=== PATIENT | female | born 1965 | race Caucasian/White ===

== ENCOUNTER 2018-09-02 05:05 | Day surgery (SDC) | payer BC ==
[2018-08-26 10:43] VITALS: BMI 27.2
[2018-09-02] MEDS ORDERED: PROPOFOL 20 ML ONE (10:20)
[2018-09-02] MEDS ORDERED: MIDAZOLAM HCL 2 MG/2 ML SINGLE DOSE VIAL ONE (10:20)
[2018-09-02] MEDS ORDERED: LIDOCAINE HCL/PF 2% SDV 5ML VIAL ONE (10:20)
--- NOTE | 2018-09-02 10:37 | HP ---
History & Physical Update - History History: No Change - Physical Physical: No Change - Assessment Assessment: No Change - Plan Plan: No Change Currently as noted:: Hysteroscopy, D&C
[2018-09-02] MEDS ORDERED: KETOROLAC TROMETHAMINE 30 MG/1 ML VIAL ONE (10:51)
[2018-09-02] MEDS ORDERED: DEXAMETHASONE SOD PHOSPHATE 4 MG/1 ML VIAL ONE (10:51)
--- NOTE | 2018-09-02 11:12 | OP ---
Operative Note - Note: Operative Date: 09/02/18 Pre-Operative Diagnosis: Abnormal/excessive perimenopausal bleeding Operation: Hysteroscopy, D&C Findings: Normal pelvic exam, normal uterine cavity Post-Operative Diagnosis: Same as Pre-op Surgeon: Nelson Monique Anesthesiologist/DIESEL ENGINE ENGINEER: Triston Emmanuel Anesthesia: General Specimens Removed: Endometrial curettings Estimated Blood Loss (mls): 5 Drains, Volume Out (mls): 0 Blood Volume Replaced (mls): 0 Fluid Volume Replaced (mls): 500 Operative Report Dictated: Yes
[2018-09-02] MEDS ORDERED: oxyCODONE HCL 5 MG TABLET PO PRN ×2 (11:17)
[2018-09-02] MEDS ORDERED: ONDANSETRON 4 MG/2 ML VIAL IVPUSH PRN (11:17)
[2018-09-02] MEDS ORDERED: LACTATED RINGERS SOLUTION 1,000 ML IV SCH (11:30)
[2018-09-02 13:49] VITALS: TEMP 98
[2018-09-02 19:11] VITALS: BP 119/64; PULSE 74
--- NOTE | 2018-09-03 19:13 | PATH ---
Surgical Pathology Report Patient Name: STEPHEN ASTUDILLO [facility]. Rec. #: [id number] /Age/Gender: 1965 (Age: 53) / F Account: [id number] Location: [facility] SURGICAL Taken: 09/02/2018 Received: 09/02/2018 Reported: 09/03/2018 Physicians: Nelson Monique M.D. Specimen(s) Received ENDOMETRIAL CURETTINGS Clinical History Fibroid uterus, pelvic pain Final Diagnosis ENDOMETRIAL CURETTINGS, DILATION AND CURETTAGE: FRAGMENTS OF ENDOMETRIUM WITH GLANDULAR AND STROMAL BREAKDOWN, SUPERFICIAL MYOMETRIUM, LOWER UTERINE SEGMENT, AND BENIGN CERVICAL TISSUE. Electronically Signed Rubia London M.D. Gross Description Received in formalin labeled "endometrial curettings," is a 2.0 x 2.0 x 0.3 cm aggregate of brady red soft tissue fragments. The formalin is filtered and the specimen is entirely submitted in one cassette. /09/02/2018 saudi09/02/2018
--- NOTE | 2018-09-19 10:30 | OP ---
DATE OF OPERATION: 09/02/2018 PREOPERATIVE DIAGNOSIS: Excessive perimenopausal bleeding. POSTOPERATIVE DIAGNOSIS: Excessive perimenopausal bleeding. PROCEDURE: Hysteroscopy, dilatation and curettage. SURGEON: Nelson Monique MD HEMMER CHAINSTITCH: None. ANESTHESIOLOGIST: Triston Emmanuel MD ANESTHESIA: General. COMPLICATIONS: None. ESTIMATED BLOOD LOSS: 5 mL. INTRAVENOUS FLUIDS: 500 mL. URINE OUTPUT: Not applicable. PATHOLOGY: Endometrial curettings. FINDINGS: Examination under anesthesia revealed a normal pelvic exam, normal uterus, no pelvic or adnexal masses. Hysteroscopy revealed a normal uterine cavity with a slightly atrophic endometrium. No lesions or masses were noted. PROCEDURE: The patient was met preoperatively. Risks, benefits, and alternatives of surgery were discussed in detail. All questions were answered. The patient was brought to the OR with the IV running. She was placed on the surgical table in the supine position. The general anesthesia was achieved without difficulty. The patient was then placed in a dorsal lithotomy position using adjustable Froylan stirrups. A timeout procedure was conducted as per standard protocol. The patient was then prepped and draped in the usual sterile fashion. A weighted speculum was used inside the vagina with good visualization of the cervix. The cervix was grasped with a single-toothed tenaculum, and the cervical os was dilated to accommodate size 17-Wolfe dilator. A hysteroscope was then introduced into the uterine cavity through the cervical canal. The hysteroscopy revealed a normal uterine cavity with a somewhat atrophic endometrial lining. No lesions or masses were noted. The hysteroscope was then removed. A sharp uterine curettage was performed, and the tissue was submitted to Pathology. Once this was completed, good hemostasis was confirmed. All of the instruments were removed from the patient. Sponge, lap, and instruments were correct. The patient was returned to supine position and transferred to recovery room awake and in stable condition. Marv [id number]
== END 2018-09-02 14:30 | disposition home or self-care (01) ==
LOC: JASU-SURG 05:05
PROVIDERS: ATTEND Obstetrics & Gynecology
PROC: 0UDB7ZX Extraction of Endometrium, Via Natural or Artificial Opening, Diagnostic (ICD-10-PCS; principal; 2018-09-02 10:00)
PROC: 0UJD8ZZ Inspection of Uterus and Cervix, Via Natural or Artificial Opening Endoscopic (ICD-10-PCS; 2018-09-02 10:00)
DX: N92.4 Excessive bleeding in the premenopausal period (principal)
CPT/HCPCS: 36415; 84703; 86850; 86900; 86901; 88305-TC; 94760

== ENCOUNTER 2019-02-20 21:04 | Emergency (ER) | payer BC ==
[2019-02-20 21:32] VITALS: BP 141/62; PULSE 78; TEMP 97.6; BMI 27.2
--- NOTE | 2019-02-20 21:34 | PDOC ---
Rapid Medical Evaluation Chief Complaint: Pain Time Seen by Provider: 02/20/19 21:30 Medical Evaluation: Allergies Allergy/AdvReac Type Severity Reaction Status Date / Time No Known Drug Allergies Allergy Verified 09/02/18 09:51 02/20/19 21:31 I have performed a brief in-person evaluation of this patient. The patient presents with a chief complaint of: left side flank pain which has been going on for few months now but worsening today. Patient report was seen in a clinic in [facility] 2 days ago and found to have kidney stone but does not have results with her. Denies N/V Pertinent physical exam findings: A&O in moderate distress I have ordered the following: cbc, cmp The patient will proceed to the ED for further evaluation. Discharge Disposition - Diagnosis Left flank pain - Discharge Dispostion Condition at time of disposition: Stable - Referrals - Patient Instructions - Post Discharge Activity
[2019-02-20] MEDS ORDERED: KETOROLAC TROMETHAMINE 30 MG/1 ML VIAL IVPUSH ONE (22:21)
[2019-02-20] MEDS ORDERED: SODIUM CHLORIDE 0.9% 1000 ML INFUS.BAG IV ONE (22:25)
[2019-02-20] MEDS ORDERED: KETOROLAC TROMETHAMINE 30 MG/1 ML VIAL ONE (22:49)
[2019-02-20 23:10] LABS: URINE APPEARANCE CLEAR; URINE BILIRUBIN NEGATIVE (NEGATIVE); URINE COLOR YELLOW; URINE GLUCOSE (UA) NEGATIVE (NEGATIVE); URINE KETONE NEGATIVE (NEGATIVE); URINE LEUK ESTERASE NEGATIVE (NEGATIVE); URINE NITRITE NEGATIVE (NEGATIVE); URINE PROTEIN NEGATIVE (NEGATIVE); URINE UROBILINOGEN 0.2 mg/dL (0.2-1.0)
[2019-02-20 23:12] LABS: BASO % 0.5 % (0-2.0); HEMATOCRIT 36.1 % (32.4-45.2); LYMPH % 33.2 % (8-40); MCH 30.1 pg (25.7-33.7); MCHC 33.3 g/dl (32.0-36.0); MEAN CELL VOLUME 90.4 fl (80-96); MEAN PLT VOLUME 7.1 fl (7.5-11.1); MONO % 9.8 % (3.8-10.2); NEUT % 54.5 % (42.8-82.8); PLATELET COUNT 260 K/MM3 (134-434); RBC 3.99 M/mm3 (3.60-5.2); RDW 14.1 % (11.6-15.6); WHITE BLOOD COUNT 5.8 K/mm3 (4.0-10.0)
[2019-02-20 23:39] LABS: ALBUMIN 3.9 g/dl (3.4-5.0); BILIRUBIN,TOTAL 0.4 mg/dL (0.2-1); CALCIUM 9.9 mg/dL (8.5-10.1); CREATININE 0.5 mg/dL (0.55-1.3); POTASSIUM 3.9 mmol/L (3.5-5.1); TOT PROT 7.2 g/dl (6.4-8.2)
--- NOTE | 2019-02-21 00:09 | PDOC ---
Documentation entered by Lora Denise SCRIBE, acting as scribe for Bea Farooq DO. Bea Farooq DO: This documentation has been prepared by the Howie marroquin Daisy, SCRIBE, under my direction and personally reviewed by me in its entirety. I confirm that the documentation accurately reflects all work, treatment, procedures, and medical decision making performed by me. Attending Attestation - Resident Resident Name: HernandezAndrea - ED Attending Attestation I have performed the following: I have examined & evaluated the patient, The case was reviewed & discussed with the resident, I agree w/resident's findings & plan - HPI HPI: 02/20/19 22:26 The patient is a 53 YOF with no PMH who presents to the ER for left flank pain that worsened today. Patient had imaging done at a clinic 2 days ago, told she had a kidney stone but did not bring the results with her. She also admits to having urinary frequency for the past 2 days. Denies nausea, vomiting, hematuria, dysuria. Allergies: NKDA - Physicial Exam PE: 02/21/19 00:10 ADULT PHYSICAL EXAM Constitutional: Awake, alert, oriented. No acute distress. Cardiovascular: Regular rate. Regular rhythm. S1, S2 regular. Distal pulses are 2+ and symmetric. Pulmonary/Chest: No evidence of respiratory distress. Clear to auscultation bilaterally No wheezing, rales or rhonchi. Abdominal: Soft and non-distended. There is no tenderness. No rebound, guarding or rigidity. No organomegaly. No palpable masses. Good bowel sounds. Back: (+) Left CVA tenderness. Musculoskeletal: No edema. Full range of motion in all extremities. Skin: Skin is warm and dry. Neurological: Alert and oriented to person, place, and time. Cranial nerves II- XII are grossly intact. - Medical Decision Making 02/21/19 00:02 I, Dr. Bea Farooq DO, attest that this document has been prepared under my direction and personally reviewed by me in its entirety. I further attest, that it accurately reflects all work, treatment, procedures and medical decision -making performed by me. 02/21/19 00:02 a/p: 53yo female with recently dx L kidney stone by CT at [facility] and follows with dr. Obrien -acute worsening of L flank pain tonight -assoc nausea no vomiting -no dysuria or hematuria -L cva ttp -labs and ultrasound ordered -will give toradol -will monitor and reassess 02/21/19 00:07 toradol improved pain labs reviewed cr stable no uti pending sono 02/21/19 00:13 no acute hyro small L ovarian cyst no torsion or ff suspect renal colic has appt with urology for follow up stable for dc to home
--- NOTE | 2019-02-21 00:26 | PDOC ---
History of Present Illness - General Chief Complaint: Pain Stated Complaint: ABD PAIN Time Seen by Provider: 02/20/19 21:30 Past History - Past Medical History Allergies/Adverse Reactions: Allergies Allergy/AdvReac Type Severity Reaction Status Date / Time No Known Drug Allergies Allergy Verified 09/02/18 09:51 Home Medications: Ambulatory Orders Naproxen [Naprosyn -] 500 mg PO BID PRN 7 Days #14 tablet 02/21/19 Ondansetron [Zofran -] 4 mg PO Q8H #10 tablet 02/21/19 Anemia: No Asthma: No Cancer: No Cardiac Disorders: No CVA: No COPD: No CHF: No Dementia: No Diabetes: No GI Disorders: No Disorders: No HTN: No Hypercholesterolemia: No Liver Disease: No Seizures: No Thyroid Disease: No - Surgical History Abdominal Surgery: No Appendectomy: Yes Cardiac Surgery: No Cholecystectomy: No Lung Surgery: No Neurologic Surgery: No Orthopedic Surgery: No - Immunization History Td Vaccination: Yes TDAP Vaccination: Yes Immunization Up to Date: Yes - Suicide/Smoking/Psychosocial Hx Smoking Status: No Smoking History: Unknown if ever smoked Have you smoked in the past 12 months: No Number of Cigarettes Smoked Daily: 0 'Breaking Loose' booklet given: 07/07/15 Hx Alcohol Use: No Drug/Substance Use Hx: No Substance Use Type: None Hx Substance Use Treatment: No *Physical Exam - Vital Signs Last Vital Signs Temp Pulse Resp BP Pulse Ox 97.6 F 78 20 141/62 100 02/20/19 21:30 02/20/19 21:30 02/20/19 21:30 02/20/19 21:30 02/20/19 21:30 ED Treatment Course - LABORATORY CBC & Chemistry Diagram: 02/20/19 22:46 02/20/19 22:46 - ADDITIONAL ORDERS Additional order review: Laboratory Results 02/20/19 02/20/19 22:46 22:46 Sodium 137 Potassium 3.9 Chloride 106 Carbon Dioxide 27 Anion Gap 5 L BUN 22 H Creatinine 0.5 L Est GFR (CKD-EPI)AfAm 128.97 Est GFR (CKD-EPI)NonAf 111.28 Random Glucose 84 Calcium 9.9 Total Bilirubin 0.4 AST 14 L ALT 25 Alkaline Phosphatase 54 Total Protein 7.2 Albumin 3.9 Urine Color Yellow Urine Appearance Clear Urine pH 7.0 D Ur Specific [place] 1.003 L Urine Protein Negative Urine Glucose (UA) Negative Urine Ketones Negative Urine Blood Negative Urine Nitrite Negative Urine Bilirubin Negative Urine Urobilinogen 0.2 Ur Leukocyte Esterase Negative 02/20/19 22:46 RBC 3.99 MCV 90.4 MCHC 33.3 RDW 14.1 MPV 7.1 L Neutrophils % 54.5 Lymphocytes % 33.2 Monocytes % 9.8 Eosinophils % 2.0 Basophils % 0.5 - RADIOLOGY Radiology Studies Ordered: Category Date Time Status PELVIC / BLADDER US [US] Stat Ultrasound 02/20/19 22:22 Taken - Medications Given in the ED: ED Medications Discontinued Medications Generic Name Dose Route Start Last Admin Trade Name Freq PRN Reason Stop Dose Admin Diphenhydramine HCl 12.5 mg 02/20/19 22:26 02/20/19 22:56 Benadryl Injection - IVPUSH 02/20/19 22:27 12.5 mg ONCE ONE Administration Ketorolac Tromethamine 30 mg 02/20/19 22:21 02/20/19 22:56 Toradol Injection - IVPUSH 02/20/19 22:22 30 mg ONCE ONE Administration Sodium Chloride 1,000 ml 02/20/19 22:25 02/20/19 22:56 Normal Saline - IV 02/20/19 22:26 1,000 ml ONCE ONE Administration *DC/Admit/Observation/Transfer Diagnosis at time of Disposition: Left flank pain - Discharge Dispostion Disposition: HOME Condition at time of disposition: Stable Decision to Admit order: No - Prescriptions Prescriptions: Naproxen [Naprosyn -] 500 mg PO BID PRN 7 Days #14 tablet PRN Reason: Pain Ondansetron [Zofran -] 4 mg PO Q8H #10 tablet - Referrals Referrals: Nelsno Monique MD [Primary Care Provider] - Larry Anna MD [Staff Physician] - - Patient Instructions Printed Discharge Instructions: DI for Kidney Stones Additional Instructions: You were seen today for left flank pain. This pain is likely from the kidney stones previously diagnosed by Dr. Anna. Your blood and urine tests were normal. The ultrasound showed the presence of kidney stones but no other concerning findings. I have sent a prescription for Naproxen and Zofran to your pharmacy. Take as directed on the package insert. Do not take more than the recommended dose. Call your doctor tomorrow morning to let the office know you were seen in the department tonight. Your results from the visit are attached to the packet. Take it with you to the appointment so your doctor can review it. Go to the nearest emergency department if your condition worsens or you feel like you need additional emergency evaluation. Print Language: HUNGARIAN - Post Discharge Activity Forms/Work/School Notes: Back to Work
== END 2019-02-21 00:34 | disposition home or self-care (01) ==
LOC: JER 21:04
PROC: 3E0333Z Introduction of Anti-inflammatory into Peripheral Vein, Percutaneous Approach (ICD-10-PCS; principal; 2019-02-20)
PROC: 3E033GC Introduction of Other Therapeutic Substance into Peripheral Vein, Percutaneous Approach (ICD-10-PCS; 2019-02-20)
DX: N20.0 Calculus of kidney (principal); Z87.442 Personal history of urinary calculi
CPT/HCPCS: 36415; 76775-TC; 76856-TC; 80053; 81003; 85025; 87086; 99282-25; J7030

== ENCOUNTER 2019-04-14 09:27 | Day surgery (SDC) | payer BC ==
[2019-04-10 15:01] VITALS: BMI 27.2
[2019-04-14] MEDS ORDERED: MIDAZOLAM HCL 2 MG/2 ML SINGLE DOSE VIAL ONE (10:49)
[2019-04-14] MEDS ORDERED: ONDANSETRON 4 MG/2 ML VIAL IVPUSH PRN (11:02)
[2019-04-14] MEDS ORDERED: oxyCODONE HCL 5 MG TABLET PO PRN (11:02)
--- NOTE | 2019-04-14 11:52 | OP ---
Operative Note - Note: Operative Date: 04/14/19 Operation: L renal stone Findings: 15 mm Left kidey pelvic area stone Surgeon: Richard Bergman Anesthesia: Fractional Estimated Blood Loss (mls): 0 Operative Report Dictated: Yes
[2019-04-14] MEDS ORDERED: ONDANSETRON 4 MG/2 ML VIAL ONE (12:48)
[2019-04-14 13:33] VITALS: PULSE 70
[2019-04-14 13:37] VITALS: BP 130/62; TEMP 97.8
--- NOTE | 2019-04-14 20:11 | OP ---
DATE OF OPERATION: 04/14/2019 PREOPERATIVE DIAGNOSIS: Left renal stone. POSTOPERATIVE DIAGNOSIS: Left renal stone. PROCEDURE: Left extracorporeal shock wave lithotripsy. ATTENDING: Christiana Buckley MD ANESTHESIA: Fractional. DESCRIPTION OF OPERATION: Patient was brought in the operating room and placed in a supine position on the operating room table. Ultrasonography and fluoroscopy were performed. A 15-mm left renal pelvic stone was identified. Once anesthesia had been instituted, shock wave lithotripsy was performed; 3000 impulses at 20 joules of power were administered to the stone with excellent fragmentation under real-time ultrasonography and fluoroscopy. No complications were noted. The disposition of the patient was to the recovery room. CHRISTIANA BUCKLEY M.D. [id number]
== END 2019-04-14 13:39 | disposition home or self-care (01) ==
LOC: JASU-SURG 09:27
PROVIDERS: ATTEND Urology
PROC: 0TF4XZZ Fragmentation in Left Kidney Pelvis, External Approach (ICD-10-PCS; principal; 2019-04-14 11:00)
DX: N20.0 Calculus of kidney (principal)
CPT/HCPCS: 84703

== ENCOUNTER 2020-05-16 20:55 | Emergency (ER) | payer BC ==
[2020-05-16 21:00] VITALS: BP 119/68; PULSE 96; TEMP 98.5; BMI 28.7
[2020-05-16] MEDS ORDERED: SODIUM CHLORIDE 1,000 ML IV STA (21:00)
--- NOTE | 2020-05-16 21:00 | PDOC ---
Rapid Medical Evaluation Time Seen by Provider: 05/16/20 20:57 Medical Evaluation: Allergies Allergy/AdvReac Type Severity Reaction Status Date / Time No Known Drug Allergies Allergy Verified 04/14/19 10:23 05/16/20 20:58 I have performed a brief in-person evaluation of this patient. CC: room spinning dizziness, abdominal pain after eating; Denies PMHx PE: No CVAT. Abd SNTND. Gait steady. Neuro grossly intact Orders: labs, urine, NS, EKG Patient will proceed to ED for further evaluation. 05/16/20 20:59 Discharge Disposition - Diagnosis Dizziness - Referrals - Patient Instructions - Post Discharge Activity
[2020-05-16 22:00] LABS: BASO % 0.9 % (0-2.0); EOS % 0.9 % (0-4.5); HEMATOCRIT 36.4 % (32.4-45.2); HEMOGLOBIN 12.2 GM/dL (10.7-15.3); LYMPH % 29.5 % (8-40); MCH 30.4 pg (25.7-33.7); MCHC 33.4 g/dl (32.0-36.0); MEAN CELL VOLUME 91.2 fl (80-96); MEAN PLT VOLUME 7.3 fl (7.5-11.1); NEUT % 58.7 % (42.8-82.8); PLATELET COUNT 271 K/MM3 (134-434); RDW 14.1 % (11.6-15.6); WHITE BLOOD COUNT 5.5 K/mm3 (4.0-10.0)
[2020-05-16 22:06] LABS: URINE APPEARANCE CLEAR; URINE BILIRUBIN NEGATIVE (NEGATIVE); URINE COLOR YELLOW; URINE GLUCOSE (UA) NEGATIVE (NEGATIVE); URINE KETONE NEGATIVE (NEGATIVE); URINE LEUK ESTERASE NEGATIVE (NEGATIVE); URINE NITRITE NEGATIVE (NEGATIVE); URINE PROTEIN NEGATIVE (NEGATIVE); URINE UROBILINOGEN 0.2 mg/dL (0.2-1.0)
[2020-05-16 22:21] LABS: ALK PHOS 56 U/L (45-117); ANION GAP 5 MMOL/L (8-16); BILIRUBIN,TOTAL 0.3 mg/dL (0.2-1); BLOOD UREA NITROGEN 10.8 mg/dL (7-18); CALCIUM 9.9 mg/dL (8.5-10.1); CHLORIDE 106 mmol/L (98-107); CO2 29 mmol/L (21-32); CREATININE 1.1 mg/dL (0.55-1.3); LIPASE 213 U/L (73-393); POTASSIUM 4.2 mmol/L (3.5-5.1); SGOT/AST 15 U/L (15-37); SGPT/ALT 21 U/L (13-61); SODIUM 139 mmol/L (136-145); TOT PROT 7.4 g/dl (6.4-8.2)
--- NOTE | 2020-05-16 22:21 | PDOC ---
History of Present Illness - General Chief Complaint: Pain, Acute Stated Complaint: STOMACH ACHES/ DIZZINESS Time Seen by Provider: 05/16/20 20:57 History Source: Patient Exam Limitations: No Limitations - History of Present Illness Initial Comments: 05/16/20 22:21 Ilda Agrawal is a 54 Y female with a PMH of nephrolithiasis(s/p lithotripsy 05/02), multiple ovarian cysts(s/p L. oophorectomy), s/p appendectomy, presents today with R. flank pain radiating to umbilicus. Patient states that the pain started after her dinner around 7.30 pm. Pain was episodic, tight, crampy pain, 10/10 at worse and 4/10 at rest. She reports that the pain is similar to her last stone, but much more severe this time. She denies any nausea, vomiting, fever, chills, diarrhea, constipation, chest pain or SOB. She reports that her LMP was one year ago, No post abnormal bleeding. She also reports that when she had the pain today, she went to the bathroom to relief her pain, but the pain became more severe with straining and she had to stand up. when she stood up she suddenly felt, dizzy and sweating and had to hold on to the wall for a bit. 05/16/20 22:34 Past History - Travel History Traveled outside of the country in the last 30 days: No - Medical History Allergies/Adverse Reactions: Allergies Allergy/AdvReac Type Severity Reaction Status Date / Time No Known Drug Allergies Allergy Verified 04/14/19 10:23 Home Medications: Ambulatory Orders NK [No Known Home Medication] 04/10/19 Anemia: No Asthma: No Cancer: No Cardiac Disorders: No CVA: No COPD: No CHF: No Dementia: No Diabetes: No GI Disorders: No Disorders: No HTN: No Hypercholesterolemia: No Kidney Stones: Yes Liver Disease: No Seizures: No Thyroid Disease: No - Surgical History Abdominal Surgery: No Appendectomy: Yes Cardiac Surgery: No Cholecystectomy: No Lung Surgery: No Neurologic Surgery: No Orthopedic Surgery: No - Immunization History Td Vaccination: Yes TDAP Vaccination: Yes Immunization Up to Date: Yes - Psycho-Social/Smoking History Smoking Status: No Smoking History: Never smoked Have you smoked in the past 12 months: No Number of Cigarettes Smoked Daily: 0 'Breaking Loose' booklet given: 07/07/15 - Substance Abuse Hx (Audit-C & DAST Scrn) How often the patient has a drink containing alcohol: Never Score: In Men: 4 or > Positive; In Women: 3 or > Positive: 0 Screen Result (Pos requires Nsg. Audit-10AR): Negative Review of Systems - Review of Systems Able to Perform ROS?: Yes Is the patient limited Swedish proficient: No Constitutional: No: Chills, Fever, Loss of Appetite HEENTM: No: Blurred Vision, Throat Pain, Throat Swelling Respiratory: No: Cough, Shortness of Breath, Productive cough Cardiac (ROS): Yes: Lightheadedness. No: Chest Pain, Edema, Irregular Heart Rate, Palpitations, Chest Tightness ABD/GI: Yes: Abdominal cramping (R.flank pain). No: Constipated, Diarrhea, Nausea, Vomiting : No: Burning, Dysuria, Urgency Musculoskeletal: No: Back Pain Neurological: No: Headache *Physical Exam - Vital Signs Last Vital Signs Temp Pulse Resp BP Pulse Ox 98.5 F 96 H 19 119/68 99 05/16/20 20:57 05/16/20 20:57 05/16/20 20:57 05/16/20 20:57 05/16/20 20:57 - Physical Exam General Appearance: Yes: Appropriately Dressed. No: Apparent Distress HEENT: positive: EOMI, CHERRY. negative: Nasal Congestion, Rhinorrhea Neck: positive: Supple. negative: Tender, Carotid bruit, Rigidity Respiratory/Chest: positive: Lungs Clear, Normal Breath Sounds. negative: Respiratory Distress, Crackles, Rales, Rhonchi Cardiovascular: positive: Regular Rhythm, Regular Rate, S1, S2. negative: Edema, JVD, Murmur Vascular Pulses: Carotid (R): 2+, Carotid (L): 2+, Dorsalis-Pedis (R): 2+, Doralis-Pedis (L): 2+ Gastrointestinal/Abdominal: positive: Normal Bowel Sounds, Tender (LLQ and LUQ mild tenderness to palpation), Rebound Musculoskeletal: positive: CVA Tenderness, CVA Tenderness (R). negative: Vertebral Tenderness Extremity: positive: Normal Capillary Refill, Normal Range of Motion. negative: Pedal Edema, Calf Tenderness Integumentary: positive: Normal Color, Dry, Warm Neurologic: positive: Fully Oriented, Alert, Normal Response, Motor Strength 5/5. negative: Numbness, Sensory Deficit, Confused ED Treatment Course - LABORATORY CBC & Chemistry Diagram: 05/16/20 21:40 05/16/20 21:40 - ADDITIONAL ORDERS Additional order review: Laboratory Results 05/16/20 22:00 Urine Color Yellow Urine Appearance Clear Urine pH 6.0 Ur Specific [place] 1.010 Urine Protein Negative Urine Glucose (UA) Negative Urine Ketones Negative Urine Blood Negative Urine Nitrite Negative Urine Bilirubin Negative Urine Urobilinogen 0.2 Ur Leukocyte Esterase Negative 05/16/20 21:40 RBC 4.00 MCV 91.2 MCHC 33.4 RDW 14.1 MPV 7.3 L Neutrophils % 58.7 Lymphocytes % 29.5 Monocytes % 10.0 Eosinophils % 0.9 Basophils % 0.9 Medical Decision Making - Medical Decision Making 54 Y female with a PMH of nephrolithiasis(s/p lithotripsy 05/02), multiple ovarian cysts(s/p L. oophorectomy), s/p appendectomy, presents today with R. flank pain radiating to umbilicus. #Nephrolithiasis vs cholelithiasis - Spiral CT - CBC, CMP, UA - EKG - Cardiac Enzymes - IVF NS 05/16/20 22:48 Discharge - Discharge Information Problems reviewed: Yes Clinical Impression/Diagnosis: Dizziness Abdominal pain Qualifiers: Abdominal location: right upper quadrant Qualified Code(s): R10.11 - Right upper quadrant pain Condition: Stable Disposition: HOME - Follow up/Referral - Patient Discharge Instructions Additional Instructions: - You were seen in [facility] on 05/16/20 for R. sided abdominal pain and dizziness without any nausea, vomiting, fever, chills, chest pain, or SOB. - You reported that you had sever pain after you ate your dinner and had an episode of dizziness in the bathroom. - When you came to ED, you reported that your pain was relieved. You received IVF of NS 1000mls. - CTA did not show any obstructing stone or acute pathology in gallbladder/pancreas. - Cardiac markers were negative. CXR was within normal limits. - No identifiable etiology for your pain and no indications for admission at this time. - Dizziness is most likely vasovagal, when you were trying to strain during bowel movements. - Please take OTC tylenol as needed for pain. DO not exceed more than 4000mg or 8 tbs per 24 hrs. - Please follow up with your PCP in the morning, regarding your acute abdominal pain and dizziness - Please return to ED if your pain increases in severity, if you experience any nausea, vomiting, constipation, back pain, chest pain, palpitations, SOB, syncope, fall, or LOC. - Post Discharge Activity
--- NOTE | 2020-05-16 22:26 | PDOC ---
Documentation entered by Mayuri Gaffney SCRIBE, acting as scribe for Casandra Toledo MD. Casandra Toledo MD: This documentation has been prepared by the scribe, Mayuri Gaffney SCRIBE, under my direction and personally reviewed by me in its entirety. I confirm that the documentation accurately reflects all work, treatment, procedures, and medical decision making performed by me. Attending Attestation - Resident Resident Name: OswaldoAmilcar stokes - ED Attending Attestation I have performed the following: I have examined & evaluated the patient, The case was reviewed & discussed with the resident, I agree w/resident's findings & plan, Exceptions are as noted - HPI HPI: 05/16/20 22:05 Patient is a 54 year old female with a significant past medical history of nephrolithiasis(s/p lithotripsy 05/02), multiple ovarian cysts(s/p L. oophorectomy), and s/p appendectomy, who presents to the ED with abdominal pain since earlier tonight. Patient describes her pain as being "crampy" on the right flank side which radiated to umbilicus with a pain level of 10/10 and 4/10 at rest, and that the pain is "worse than previous kidney stones". Patient disclosed that she colby to the bathroom to try to "relieve her pain" but her symptoms became worse. Patient endorses: dizziness and sweating. Patient denies: fever, chills, nausea, vomiting, SOB, chest pain, constipation, diarrhea, abnormal bleeding, or any other related symptoms. Allergies: NKDA Last menstrual period: 1 year ago - Physicial Exam PE: 05/16/20 22:23 wnwd 54 yo female who suddenly developed rt flank pain that radiated to rt lower abdomen head ncat neck supple lungs no wheezing cvs [id number] abdomen no rebound, no guarding skin warm and dry extremities no edema,no erythema neuro axox3,ambulatory - Medical Decision Making 05/17/20 00:36 stable vital signs 63 yo female has rt sided campy abdominal after eating dinner,went to the bathroom and had experienced lightheaded when she tried to void Denies ever having chest pain ,fever,chills,diarrhea or vomiting UA negative ekg NSR @ 73 bpm, troponin is negative cxr :normal cardiac silhouette,normal mediastinum labs reviewed and are unremarkable ct scan abd/pel no evidence for obstructing kidney stones, no sbo,no masses pt's symptoms resolved w/o intervention 05/17/20 00:41 Discharge - Discharge Information Problems reviewed: Yes Clinical Impression/Diagnosis: Dizziness Abdominal pain Qualifiers: Abdominal location: right upper quadrant Qualified Code(s): R10.11 - Right upper quadrant pain Condition: Stable Disposition: HOME - Follow up/Referral - Patient Discharge Instructions Additional Instructions: - You were seen in [facility] on 05/16/20 for R. sided abdominal pain and dizziness without any nausea, vomiting, fever, chills, chest pain, or SOB. - You reported that you had sever pain after you ate your dinner and had an episode of dizziness in the bathroom. - When you came to ED, you reported that your pain was relieved. You received IVF of NS 1000mls. - CTA did not show any obstructing stone or acute pathology in gallbladder/pancreas. - Cardiac markers were negative. CXR was within normal limits. - No identifiable etiology for your pain and no indications for admission at this time. - Dizziness is most likely vasovagal, when you were trying to strain during bowel movements. - Please take OTC tylenol as needed for pain. DO not exceed more than 4000mg or 8 tbs per 24 hrs. - Please follow up with your PCP in the morning, regarding your acute abdominal pain and dizziness - Please return to ED if your pain increases in severity, if you experience any nausea, vomiting, constipation, back pain, chest pain, palpitations, SOB, syncope, fall, or LOC. - Post Discharge Activity
[2020-05-16 23:01] LABS: GLUCOSE,RANDOM 103 mg/dL (74-106)
--- NOTE | 2020-05-17 09:55 | EKG ---
Test Reason : Blood Pressure : / mmHG Vent. Rate : 073 BPM Atrial Rate : 073 BPM P-R Int : 164 ms QRS Dur : 084 ms QT Int : 388 ms P-R-T Axes : 065 045 052 degrees QTc Int : 427 ms NORMAL SINUS RHYTHM Normal ECG NO PREVIOUS ECGS AVAILABLE Confirmed by Parish Alexander ([id number]) on 05/17/2020 9:54:37 AM Referred By: Confirmed By:Parish Alexander
== END 2020-05-17 01:00 | disposition home or self-care (01) ==
LOC: JER 20:55
PROC: 3E0337Z Introduction of Electrolytic and Water Balance Substance into Peripheral Vein, Percutaneous Approach (ICD-10-PCS; principal; 2020-05-16)
DX: R42 Dizziness and giddiness (principal); R10.11 Right upper quadrant pain
CPT/HCPCS: 36415; 71046-TC-FY; 74176-TC; 80053; 81003; 82550; 83690; 84484; 85025; 87077; 87086; 93005; 93010; 99285-25